=== PATIENT | female | born 1960 | race Caucasian/White ===

== ENCOUNTER 2016-11-14 16:34 | Emergency (ER) | payer MEDICARE ==
[2016-11-14] MEDS ORDERED: DILAUDID 1 MG/ML AMP ONE (18:42)
[2016-11-14] MEDS ORDERED: ONDANSETRON ODT 4 MG TAB ONE (18:45)
== END 2016-11-14 19:50 | disposition home or self-care (01) ==
LOC: ER 16:34
DX: S43.422A Sprain of left rotator cuff capsule, initial encounter (principal); X50.0XXA Overexertion from strenuous movement or load, initial encounter; Y92.009 Unspecified place in unspecified non-institutional (private) residence as the place of occurrence of the external cause; Z86.14 Personal history of Methicillin resistant Staphylococcus aureus infection; E11.9 Type 2 diabetes mellitus without complications; I10 Essential (primary) hypertension; Z79.4 Long term (current) use of insulin; Z79.84 Long term (current) use of oral hypoglycemic drugs; Z79.899 Other long term (current) drug therapy; F17.210 Nicotine dependence, cigarettes, uncomplicated
CPT/HCPCS: 73030; 96372; 99284; J1170